=== PATIENT | male | born 1995 ===

== ENCOUNTER 2017-02-04 15:55 | Emergency (ER) | payer MEDICAID, OTHER ==
[2017-02-04 15:55] VITALS: BMI 17.3
[2017-02-04 16:10] VITALS: BP 122/79; PULSE 79; RESP 18; TEMP 98.1; O2SAT 100
--- NOTE | 2017-02-04 16:57 | ED PDOC ---
HPI: Back Time Seen by Provider: 02/04/17 16:29 Chief Complaint (Nursing): Back Pain Chief Complaint (Provider): back pain History Per: Patient History/Exam Limitations: no limitations Onset/Duration Of Symptoms: Persistent Additional Complaint(s): Pt with h/o crohn's c/o back pain for about 3 weeks worsening since onset constant worsens with certain movements of trunk. Denies fall or injury. Reports unintentional weight loss for about 2 months, which he attributes to crohn's disease. He follows with GI Dr Scott. He denies numbness or weakness. He denies fever. Denies urinary or bowel incontinence or retention. Took tylenol for pain with minimal relief. PMD: Dr Almaz Ellis Past Medical History Reviewed: Historical Data, Nursing Documentation Vital Signs: Last Vital Signs Temp 98.1 F 02/04/17 16:07 Pulse 79 02/04/17 16:07 Resp 18 02/04/17 16:07 BP 122/79 02/04/17 16:07 Pulse Ox 100 02/04/17 16:07 - Medical History PMH: Asthma, Crohn's Disease, Gastritis - Surgical History Surgical History: Endoscopy (but no colonoscopy) - Family History Family History: States: No Known Family Hx - Immunization History Hx Tetanus Toxoid Vaccination: No Hx Influenza Vaccination: Yes Hx Pneumococcal Vaccination: No - Home Medications Home Medications: Ambulatory Orders Medication Instructions Recorded Sucralfate 1 gm PO BID 10/29/15 Sucralfate [Carafate Tab] 1 gm PO TID #90 tab 01/21/17 Lidocaine 5% [Lidoderm] 1 ea TD DAILY PRN #20 patch 02/04/17 traMADol [Ultram] 50 mg PO TID PRN 3 Days 02/04/17 - Allergies Allergies/Adverse Reactions: Allergies Allergy/AdvReac Type Severity Reaction Status Date / Time aspirin Allergy URTICARIA Verified 08/11/16 20:36 Review of Systems ROS Statement: Except As Marked, All Systems Reviewed And Found Negative (and as per HPI) Gastrointestinal: Negative for: Abdominal Pain, Diarrhea, Constipation Genitourinary Male: Negative for: Dysuria, Hematuria Musculoskeletal: Positive for: Back Pain Neurological: Negative for: Weakness, Numbness Physical Exam - Reviewed Nursing Documentation Reviewed: Yes Vital Signs Reviewed: Yes - Physical Exam Appears: Positive for: Well, No Acute Distress Head Exam: Positive for: ATRAUMATIC, NORMOCEPHALIC Skin: Positive for: Warm, Dry Respiratory: Positive for: Normal Breath Sounds. Negative for: Respiratory Distress Gastrointestinal/Abdominal: Positive for: Soft. Negative for: Tenderness Back: Positive for: Vertebral Tenderness (All spinous processes prominent due to patient's body habitus, but ttp at midline thoracic spine at T-8 or 9(?) which is more prominent than others, no step off or crepitus, also with paraspinal ttp at this level). Negative for: Decreased ROM, Muscle Spasm, Other Extremity: Positive for: Normal ROM. Negative for: Pedal Edema Neurologic/Psych: Positive for: Alert. Negative for: Motor/Sensory Deficits, Other (saddle anesthesia) - ECG O2 Sat by Pulse Oximetry: 100 Disposition - Clinical Impression Clinical Impression: Back pain Counseled Patient/Family Regarding: Studies Performed, Diagnosis, Need For Followup, Rx Given - Disposition Disposition: Routine/Home Disposition Time: 18:00 Condition: IMPROVED Additional Instructions: FOLLOW UP WITH YOUR DOCTOR WITHIN A WEEK FOR FURTHER EVALUATION AND MANAGEMENT. TAKE MEDICATION PRESCRIBED Prescriptions: Lidocaine 5% [Lidoderm] 1 ea TD DAILY PRN #20 patch PRN Reason: PAIN traMADol [Ultram] 50 mg PO TID PRN 3 Days PRN Reason: SEVERE PAIN ONLY Instructions: Narcotic Pain Management (ED), Back Pain (ED)
[2017-02-04 17:14] LABS: URINE BILIRUBIN NEGATIVE (NEGATIVE); URINE BLOOD NEGATIVE (NEGATIVE); URINE COLOR YELLOW (YELLOW); URINE GLUCOSE (UA) NEG (Normal); URINE KETONE NEGATIVE (NEGATIVE); URINE LEUKOCYTE ESTERASE NEG Leu/uL (Negative); URINE PROTEIN 30 mg/dL (NEGATIVE); URINE UROBILINOGEN 0.2-1.0 mg/dL (0.2-1.0); WBC URINE < 1 /hpf (0-5)
--- NOTE | 2017-02-05 12:42 | RAD ---
HISTORY: midback pain h/o crohns COMPARISON: No prior. FINDINGS: BONES: Alignment maintained. No fracture. DISC SPACES: Normal. SOFT TISSUES: Normal. OTHER FINDINGS: None. IMPRESSION: No significant or acute findings to account for/ related to the clinical presentation.
== END 2017-02-04 19:14 | disposition home or self-care (01) ==
LOC: H.ER 15:55
DX: M54.6 Pain in thoracic spine (principal); K50.90 Crohn's disease, unspecified, without complications; J45.909 Unspecified asthma, uncomplicated